=== PATIENT | female | born 1935 | race Caucasian/White ===

== ENCOUNTER → 2016-10-22 | Outpatient (CLI) | payer MEDICARE, OTHER ==
[2016-10-22 13:02] LABS: CHLORIDE,CL 103 mmol/L (98-110); SODIUM,NA 138 mmol/L (136-146)
== END ==
LOC: MW.CHPEDS 10:51 → MW.LAB 10:51
PROVIDERS: ATTEND Internal Medicine
DX: E03.9 Hypothyroidism, unspecified (principal); I10 Essential (primary) hypertension; E78.5 Hyperlipidemia, unspecified
CPT/HCPCS: 36415; 80053; 80061; 84439; 84443; 85025

== ENCOUNTER → 2016-10-23 | Outpatient (CLI) | payer MEDICARE, OTHER | LOC: MW.CHIM 08:00 | PROVIDERS: ATTEND Internal Medicine | DX: F41.8 Other specified anxiety disorders (principal); I10 Essential (primary) hypertension; E78.5 Hyperlipidemia, unspecified; K21.9 Gastro-esophageal reflux disease without esophagitis | CPT/HCPCS: 99214 ==

== ENCOUNTER 2017-04-20 08:09 | Day surgery (SDC) | payer MEDICARE, OTHER ==
[~2017-04-20 08:09] MED LIST: Lactated Ringers 1,000 ML IV SCH; Midazolam 1 MG/ML 2 ML SDV ONE; Propofol 200 MG/20 ML SDV ONE; fentaNYL 100 MCG/2 ML SDV ONE
--- NOTE | 2017-04-20 08:46 | PCM.PREANE ---
Preanesthetic Assessment - Anesthesia/Transfusion/Family Hx Anesthesia History: Prior Anesthesia Without Reaction Family History of Anesthesia Reaction: No Transfusion History: No Prior Transfusion(s) - Review of Systems General: No Symptoms Pulmonary: No Symptoms Cardiovascular: No Symptoms Gastrointestinal: No Symptoms Neurological: No Symptoms Other: Reports: None - Physical Assessment NPO Status Date: 04/19/17 Height: 1.6 m Weight: 77.111 kg ASA Class: 2 Mental Status: Alert & Oriented x3 Dentition: Reports: Normal Dentition ROM/Head Extension: Full Lungs: Clear to Auscultation, Normal Respiratory Effort Cardiovascular: Regular Rate, Regular Rhythm - Allergies Allergies/Adverse Reactions: Allergies Allergy/AdvReac Type Severity Reaction Status Date / Time No Known Allergies Allergy Verified 02/17/14 15:07 - Anesthesia Plan Pre-Op Medication Ordered: None - Acknowledgements Anesthesia Type Planned: MAC Pt an Appropriate Candidate for the Planned Anesthesia: Yes Alternatives and Risks of Anesthesia Discussed w Pt/Guardian: Yes Pt/Guardian Understands and Agrees with Anesthesia Plan: Yes PreAnesthesia Questionnaire - Past Health History Medical/Surgical History: Denies Medical/Surgical History HEENT History: Reports: Other (See Below) Other HEENT History: wears glasses, has upper partial Cardiovascular History: Reports: High Cholesterol, Hypertension Gastrointestinal History: Reports: GERD Genitourinary History: Reports: None 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: Musculoskeletal History: Reports: Arthritis, Back Pain, Chronic Psychiatric History: Reports: Anxiety, Depression - Past Surgical History Head Surgeries/Procedures: Reports: None HEENT Surgical History: Reports: Cataract Surgery Female Surgical History: Reports: Hysterectomy, Tubal Ligation - SUBSTANCE USE Smoking Status *Q: Former Smoker Second Hand Smoke Exposure: No Days Per Week of Alcohol Use: 2 Number of Drinks Per Day: 1 Total Drinks Per Week: 2 Recreational Drug Use History: No - HOME MEDS Home Medications: Home Meds Oxybutynin [Oxybutynin ER] 5 mg PO DAILY 09/20/13 [History] Simvastatin [Zocor] 20 mg PO BEDTIME 09/20/13 [History] Losartan/Hydrochlorothiazide [Losartan-HCTZ 50-12.5 MG] 1 each PO DAILY [History] Aspirin [[place] Aspirin] 81 ng PO DAILY 04/16/17 [History] Calcium Carbonate/Vitamin D3 [Calcium 600 + Vit D Tablet] 1 tab PO DAILY [History] Esomeprazole [NexIUM] 40 mg PO DAILY PRN 04/16/17 [History] LORazepam 0.5 - 1 tab PO BEDTIME PRN 04/16/17 [History] Magnesium 1 tab PO DAILY 04/16/17 [History] traMADol HCl [Tramadol HCl] 50 mg PO BID PRN 04/16/17 [History] - CURRENT (IN HOUSE) MEDS Current Meds: Current Medications Lactated Ringer's (Ringers, Lactated) 1,000 mls @ 125 mls/hr IV ASDIRECTED JOSIANE Discontinued Medications Fentanyl (Sublimaze) Confirm Administered Dose 100 mcg .ROUTE .STK-MED ONE Stop: 04/20/17 07:01 Lidocaine HCl (Xylocaine-Mpf 1%) Confirm Administered Dose 5 ml .ROUTE .STK-MED ONE Stop: 04/20/17 07:02 Midazolam HCl (Versed 1 Mg/Ml) Confirm Administered Dose 2 mg .ROUTE .STK-MED ONE Stop: 04/20/17 07:01 Propofol (Diprivan 20 Ml) Confirm Administered Dose 200 mg .ROUTE .STK-MED ONE Stop: 04/20/17 07:01
[2017-04-20] MEDS ORDERED: Propofol 200 MG/20 ML SDV ONE (09:59)
--- NOTE | 2017-04-20 10:22 | PCM.OPNOTE ---
- General Post-Op/Procedure Note Date of Surgery/Procedure: 04/20/17 Operative Procedure(s): EGD w/ biopsy. Colonoscopy w/snare rectal polypectomy, cold sigmoid and descending colon polypectomies Pre Op Diagnosis: Abdominal pain. Desire for colorectal cancer screening Post-Op Diagnosis: Chronic gastritis. Rectal, sigmoid and descending colon polyps. Sigmoid diverticulosis Anesthesia Technique: MAC (ASA II) Primary Surgeon: Patrick Anthony Condition: Good Free Text/Narrative:: Dictation [id number] CPT CODE [id number]
[2017-04-20] MEDS ORDERED: Lactated Ringers 1,000 ML IV SCH (10:30)
--- NOTE | 2017-04-20 11:04 | PCM48HPAN ---
Post Anesthesia Note - EVALUATION WITHIN 48HRS OF ANESTHETIC Vital Signs in Normal Range: Yes Patient Participated in Evaluation: Yes Respiratory Function Stable: Yes Airway Patent: Yes Cardiovascular Function Stable: Yes Hydration Status Stable: Yes Pain Control Satisfactory: Yes Nausea and Vomiting Control Satisfactory: Yes Mental Status Recovered: Yes
--- NOTE | 2017-04-20 11:04 | PCM.POSTAN ---
POST ANESTHESIA ASSESSMENT - MENTAL STATUS Mental Status: Alert, Oriented - RESPIRATORY Respiratory Status: Respiratory Rate WNL, Airway Patent, O2 Saturation Stable - CARDIOVASCULAR CV Status: Pulse Rate WNL, Blood Pressure Stable - GASTROINTESTINAL GI Status: No Symptoms - POST OP HYDRATION Hydration Status: Adequate & Stable
--- NOTE | 2017-04-20 13:53 | OR ---
SURGEON: Patrick Anthony M.D. DATE OF PROCEDURE: 04/20/2017 OPERATION PERFORMED: Esophagogastroduodenoscopy with biopsy. ANESTHESIA: MAC. ASA CLASSIFICATION: II. PREOPERATIVE DIAGNOSIS: Abdominal pain. POSTOPERATIVE DIAGNOSIS: Mild gastritis. DESCRIPTION OF PROCEDURE: The patient was taken to the endoscopy room, positioned on the endoscopy table in the supine position. Time-out was called for appropriate identification of the patient and procedure. Monitored anesthesia care was provided. A bite block was placed between the patient's teeth. The gastroscope was inserted and advanced without difficulty through the esophagus and stomach into the duodenum where examination was carried out in a retrograde fashion. The duodenum shows no acute inflammatory changes or ulcerations. The stomach does show mild-to- moderate gastritis. Antral biopsies were obtained to look for the presence of Helicobacter pylori. No acute ulcerations were noted. The gastroscope was retroflexed to visualize the proximal stomach. Again, no proximal lesions were identified. Specifically, no tumors or ulcerations were noted. The esophagus demonstrated good contractility. No vocal cord lesions were identified as the scope was removed. The patient tolerated the upper GI endoscopy well and following colonoscopy was taken to recovery room in stable condition. MELIDA BAILON /[id number]
--- NOTE | 2017-04-20 13:59 | OR ---
SURGEON: Patrick Anthony M.D. DATE OF PROCEDURE: 04/20/2017 OPERATION PERFORMED: Colonoscopy with snare rectal polypectomy, cold descending and sigmoid colon polypectomy. ANESTHESIA: MAC. ASA CLASSIFICATION: II. PREOPERATIVE DIAGNOSIS: Abdominal pain, desire for colorectal cancer screening. POSTOPERATIVE DIAGNOSES: 1. Large rectal polyp. 2. Sigmoid polyp. 3. Descending colon polyp. 4. Sigmoid diverticulosis. DESCRIPTION OF PROCEDURE: With the patient having completed esophagogastroduodenoscopy with biopsy, she was now positioned in the left lateral decubitus position. The colonoscope was inserted into the rectum and advanced with minimal difficulty to the cecum. Cecum was identified by internal landmarks and external pressure. The colonoscope was retroflexed in the cecum to visualize the ascending colon from below, then straightened and slowly withdrawn. The cecum, ascending colon, hepatic flexure, transverse colon, and splenic flexure showed no tumors, polyps, diverticula, or angiodysplastic changes. One polyp was encountered in the descending colon and removed with the cold biopsy forceps. Sigmoid diverticular changes were noted. No stricture, spasm, or bleeding was noted. A second polyp was encountered in the sigmoid colon and likewise removed with the cold biopsy forceps. A 3rd larger polyp was encountered in the proximal rectum and removed with the use of snare electrocautery. The specimen was able to be retrieved. The colonoscope was withdrawn to the distal rectum and retroflexed to visualize the anal orifice from above. There were no tumors, polyps, or hemorrhoidal changes distally. The colonoscope was then straightened, the rectum aspirated, and the colonoscope removed. The patient tolerated the procedure well and was taken to recovery room in stable condition. MELIDA BAILON /[id number]
== END 2017-04-20 11:25 | disposition home or self-care (01) ==
LOC: MW.SDS 08:09
PROVIDERS: ATTEND Surgery
DX: K29.50 Unspecified chronic gastritis without bleeding (principal); K63.5 Polyp of colon; D12.8 Benign neoplasm of rectum; K57.30 Diverticulosis of large intestine without perforation or abscess without bleeding; F41.9 Anxiety disorder, unspecified; I10 Essential (primary) hypertension; E78.00 Pure hypercholesterolemia, unspecified; E03.9 Hypothyroidism, unspecified; E66.3 Overweight; K21.9 Gastro-esophageal reflux disease without esophagitis; M19.90 Unspecified osteoarthritis, unspecified site; Z87.891 Personal history of nicotine dependence; Z79.82 Long term (current) use of aspirin; Z79.899 Other long term (current) drug therapy; Z98.49 Cataract extraction status, unspecified eye; Z98.51 Tubal ligation status; Z90.710 Acquired absence of both cervix and uterus; Z68.30 Body mass index [BMI] 30.0-30.9, adult
CPT/HCPCS: 43239; 45380; 45385; J2250; J3010; J7120; 00740; 88305; 88312; J2704

== ENCOUNTER 2019-11-03 18:36 | Emergency (ER) | payer MEDICARE, OTHER ==
[2019-11-03] MEDS ORDERED: Sodium Chloride 0.9% 10 ML Syringe FLUSH PRN (19:15)
[2019-11-03] MEDS ORDERED: Sodium Chloride 0.9% 2.5 ML Syringe FLUSH PRN (19:15)
--- NOTE | 2019-11-03 19:31 | EDM.PDOC ---
ED HPI GENERAL MEDICAL PROBLEM - General Chief Complaint: General Stated Complaint: BACK PAIN, SHORTNESS OF BREATHE,WEAK Time Seen by Provider: 11/03/19 19:05 - History of Present Illness INITIAL COMMENTS - FREE TEXT/NARRATIVE: 84-year-old female presents with generalized fatigue, shortness of breath and chronic back pain. Patient reports back pain for years which is typically low back pain sometimes thoracic back pain. She is tried physical therapy before with mixed results. This is an ongoing problem for her and she seems to be having worse symptoms over the last several weeks similar to previous exacerbations. Concerning this complaint, the patient denies any lukasz weakness , numbness, incontinence, or urinary retention. He does endorse chronic constipation but this is been unchanged for her in a chronic problem. She complains of shortness of breath which she noticed first about 1 month ago which seems to be accompanied with some fatigue. She denies any paroxysmal nocturnal dyspnea but she does endorse dyspnea on exertion walking up steps. She reports going to the mailbox seems to be difficult for her at this point. She denies any chest pain or previous heart history. Denies any previous heart attacks. Denies any recent trips or travels or history of DVT or PE. Denies any confusion, vision changes, recent falls, abdominal pain, dysuria, weakness, numbness, aphasia, diaphoresis, vomiting. Lower Back Pain Score (Numeric/FACES): 4 - Related Data Allergies Allergy/AdvReac Type Severity Reaction Status Date / Time No Known Allergies Allergy Verified 11/03/19 19:07 Home Meds: Home Meds Oxybutynin [Oxybutynin ER] 5 mg PO DAILY 09/20/13 [History] Simvastatin [Zocor] 20 mg PO BEDTIME 09/20/13 [History] Aspirin [[place] Aspirin] 81 ng PO DAILY 04/16/17 [History] Calcium Carbonate/Vitamin D3 [Calcium 600 + Vit D Tablet] 1 tab PO DAILY [History] Magnesium 1 tab PO DAILY 04/16/17 [History] Losartan [Cozaar] 25 mg PO DAILY 11/03/19 [History] cephALEXin [Keflex] 500 mg PO BID 3 Days #6 capsule 11/03/19 [Rx] Past Medical History - Past Health History Medical/Surgical History: Denies Medical/Surgical History HEENT History: Reports: Other (See Below) Other HEENT History: wears glasses, has upper partial Cardiovascular History: Reports: High Cholesterol, Hypertension Respiratory History: Reports: None Gastrointestinal History: Reports: GERD Genitourinary History: Reports: None 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: Musculoskeletal History: Reports: Arthritis, Back Pain, Chronic, Fracture Neurological History: Reports: None Psychiatric History: Reports: Anxiety, Depression Endocrine/Metabolic History: Reports: None Hematologic History: Reports: None Immunologic History: Reports: None Oncologic (Cancer) History: Reports: None Dermatologic History: Reports: None - Infectious Disease History Infectious Disease History: Reports: Chicken Pox, Measles - Past Surgical History Head Surgeries/Procedures: Reports: None HEENT Surgical History: Reports: Cataract Surgery, Eye Surgery GI Surgical History: Reports: Cholecystectomy, Colonoscopy, EGD Female Surgical History: Reports: Hysterectomy, Tubal Ligation Social & Family History - Tobacco Use Smoking Status *Q: Former Smoker Used Tobacco, but Quit: Yes Month/Year Tobacco Last Used: 1969 - Caffeine Use Caffeine Use: Reports: Coffee - Recreational Drug Use Recreational Drug Use: No ED ROS GENERAL - Review of Systems Review Of Systems: Comprehensive ROS is negative, except as noted in HPI. ED EXAM, GENERAL - Physical Exam Exam: See Below Free Text/Narrative:: General: No acute distress. Comfortable. Heent: Examination revealed no pallor, no icterus, no lymphadenopathy. The patient has normal posterior pharynx, moist mucous membranes. Neck: Supple. No JVD. No rigidity. Heart: Normal rate. Reg rhythm. No murmurs appreciated. Lungs: Bilaterally clear to auscultation. No focal findings. Abdomen: Nontender, non-distended, soft, no CVA tenderness. Neuro: Pt is moving all four extremities. EOMI. PERRL. Normal speech. Brisk patellar and Achilles reflexes bilateral lower extremities. Excellent power dorsiflexion and plantarflexion. Hip flexors full power. Back: There is some mild/moderate tenderness of the upper lumbar lower thoracic spine area. There is no evidence of contusion or ecchymosis here. Skin: Exposed areas appeared normally perfused, warm, normal color with no meaningful rashes or lesions. Extremities: Peripheral examination revealed no pedal edema. Peripheral pulses were 2+. EKG INTERPRETATION EKG Interpretation Comments: EKG time 7:28 PM. Normal sinus rhythm at 72. V2 does demonstrate a early R wave progression. Intervals are normal. There is a left axis. There is trace ST depression laterally. No acute ischemia noted. QTc is 420. Course - Vital Signs Text/Narrative:: The patient is not complaining of any focal weakness and therefore this is not likely associated with her chronic and ongoing back pain. No red flags for back pain to suggest any type of cauda equina or conus medullaris syndrome. She will follow-up with her primary care doctor about her back pain complaint. Her shortness of breath however is new and does need some work-up tonight. Will complete chest x-ray, BNP. BMP, CBC and of course EKG and troponin. We will also check MAg. Demonstrates some likely mild dehydration with elevated BUN. Small bolus given here. Also urine is somewhat dirty. Not likely the cause of her fatigue but probably worth several days treatment. Patient will follow-up with her primary care provider return with any worsening. No evidence to suggest the idea of fatigue from cardiac etiology given her normal troponin, EKG nonischemic and chest x-ray similar to previous. No leg swelling or EKGs findings strongly suggesting pulmonary embolus. Return precautions for any change or new symptoms. Last Recorded V/S: Last Vital Signs Temp 97.7 F 11/03/19 19:05 Pulse 70 11/03/19 20:30 Resp 20 11/03/19 19:05 BP 141/58 H 11/03/19 20:30 Pulse Ox 96 11/03/19 20:30 - Orders/Labs/Meds Orders: Active Orders 24 hr Category Date Time Status EKG Documentation Completion [RC] STAT Care 11/03/19 19:16 Active B-TYPE NATRIURETIC PEPTIDE,BNP [CHEM] Stat Lab 11/03/19 19:25 Received Sodium Chloride 0.9% [Normal Saline] 500 ml Med 11/03/19 20:53 Active IV .BOLUS Sodium Chloride 0.9% [Saline Flush] Med 11/03/19 19:15 Active 10 ml FLUSH ASDIRECTED PRN Sodium Chloride 0.9% [Saline Flush] Med 11/03/19 19:15 Active 2.5 ml FLUSH ASDIRECTED PRN Saline Lock Insert [OM.PC] Stat Oth 11/03/19 19:15 Ordered Medication Orders Sodium Chloride (Normal Saline) 500 mls @ 999 mls/hr IV .BOLUS ONE Stop: 11/03/19 21:23 Sodium Chloride (Saline Flush) 10 ml FLUSH ASDIRECTED PRN PRN Reason: Keep Vein Open Sodium Chloride (Saline Flush) 2.5 ml FLUSH ASDIRECTED PRN PRN Reason: Keep Vein Open Labs: Laboratory Tests 11/03/19 11/03/19 11/03/19 Range/Units 19:25 19:25 20:38 WBC 5.03 (4.0-11.0) K/uL RBC 4.24 L (4.30-5.90) M/uL Hgb 12.9 (12.0-16.0) g/dL Hct 38.4 (36.0-46.0) % MCV 90.6 (80.0-98.0) fL MCH 30.4 (27.0-32.0) pg MCHC 33.6 (31.0-37.0) g/dL RDW Std Deviation 43.5 (28.0-62.0) fl RDW Coeff of Maximino 13 (11.0-15.0) % Plt Count 208 (150-400) K/uL MPV 13.20 H (7.40-12.00) fL Neut % (Auto) 50.5 (48.0-80.0) % Lymph % (Auto) 33.6 (16.0-40.0) % Reagan % (Auto) 15.5 H (0.0-15.0) % Eos % (Auto) 0.2 (0.0-7.0) % Baso % (Auto) 0.2 (0.0-1.5) % Neut # (Auto) 2.5 (1.4-5.7) K/uL Lymph # (Auto) 1.7 (0.6-2.4) K/uL Reagan # (Auto) 0.8 (0.0-0.8) K/uL Eos # (Auto) 0.0 (0.0-0.7) K/uL Baso # (Auto) 0.0 (0.0-0.1) K/uL Nucleated RBC % 0.0 /100WBC Nucleated RBCs # 0 K/uL Sodium 134 L (136-145) mmol/L Potassium 3.9 (3.5-5.1) mmol/L Chloride 96 L (98-107) mmol/L Carbon Dioxide 25.0 (21.0-32.0) mmol/L BUN 27 H (7.0-18.0) mg/dL Creatinine 1.4 H (0.6-1.0) mg/dL Est Cr Clr Drug Dosing 25.63 mL/min Estimated GFR (MDRD) 36.0 ml/min Glucose 161 H (74-106) mg/dL Calcium 9.8 (8.5-10.1) mg/dL Magnesium 1.9 (1.8-2.4) mg/dL Total Bilirubin 0.7 (0.2-1.0) mg/dL AST 21 (15-37) IU/L ALT 22 (14-63) IU/L Alkaline Phosphatase 68 (46-116) U/L Troponin I < 0.050 (0.000-0.056) ng/mL Total Protein 8.0 (6.4-8.2) g/dL Albumin 4.2 (3.4-5.0) g/dL Globulin 3.8 (2.6-4.0) g/dL Albumin/Globulin Ratio 1.1 (0.9-1.6) Urine Color YELLOW Urine Appearance SLT CLOUDY Urine pH 5.5 (5.0-8.0) Ur Specific Dudley >= 1.030 (1.001-1.035) Urine Protein 30 H (NEGATIVE) mg/dL Urine Glucose (UA) NEGATIVE (NEGATIVE) mg/dL Urine Ketones TRACE H (NEGATIVE) mg/dL Urine Occult Blood TRACE-INTACT H (NEGATIVE) Urine Nitrite NEGATIVE (NEGATIVE) Urine Bilirubin SMALL H (NEGATIVE) Urine Ictotest QNS Urine Urobilinogen 0.2 (<2.0) EU/dL Ur Leukocyte Esterase LARGE H (NEGATIVE) Urine RBC 0-1 (0-2/HPF) Urine WBC 8-11 (0-5/HPF) Ur Epithelial Cells MODERATE (NONE-FEW) Urine Bacteria 2+ H (NEGATIVE) Urine Mucus LIGHT (NONE-MOD) Meds: Medications Generic Name Dose Route Start Last Admin Trade Name Freq PRN Reason Stop Dose Admin Sodium Chloride 500 mls @ 999 mls/hr 11/03/19 20:53 Normal Saline IV 11/03/19 21:23 .BOLUS ONE Sodium Chloride 10 ml 11/03/19 19:15 Saline Flush FLUSH ASDIRECTED PRN Keep Vein Open Sodium Chloride 2.5 ml 11/03/19 19:15 Saline Flush FLUSH ASDIRECTED PRN Keep Vein Open Departure - Departure Time of Disposition: 21:20 Disposition: Home, Self-Care 01 Preliminary Cause of *Q: Cardiac Arrest Condition: Good Clinical Impression: Shortness of breath, Back pain Fatigue Qualifiers: Fatigue type: unspecified Qualified Code(s): R53.83 - Other fatigue - Discharge Information Prescriptions: cephALEXin [Keflex] 500 mg PO BID 3 Days #6 capsule Referrals: Kirill Dunn MD [Primary Care Provider] - Forms: ED Department Discharge Additional Instructions: Drink a little more water than you have been. Maintain your hydration. You are a little bit dry here on your laboratories. Take your antibiotics as directed. Follow-up with your primary care provider first available appointment. Return to emergency with any new or troubling symptoms. The following information is given to patients seen in the emergency department who are being discharged to home. This information is to outline your options for follow-up care. We provide all patients seen in our emergency department with a follow-up referral. The need for follow-up, as well as the timing and circumstances, are variable depending upon the specifics of your emergency department visit. If you don't have a primary care physician on staff, we will provide you with a referral. We always advise you to contact your personal physician following an emergency department visit to inform them of the circumstance of the visit and for follow-up with them and/or the need for any referrals to a consulting specialist. The emergency department will also refer you to a specialist when appropriate. This referral assures that you have the opportunity for follow-up care with a specialist. All of these measure are taken in an effort to provide you with optimal care, which includes your follow-up. Under all circumstances we always encourage you to contact your private physician who remains a resource for coordinating your care. When calling for follow-up care, please make the office aware that this follow-up is from your recent emergency room visit. If for any reason you are refused follow-up, please contact the [facility] Emergency Department at and asked to speak to the emergency department charge nurse. Sepsis Event Note - Evaluation Sepsis Screening Result: No Definite Risk - Focused Exam Vital Signs: Vital Signs Temp Pulse Resp BP Pulse Ox 11/03/19 20:30 70 141/58 H 96 11/03/19 19:05 97.7 F 91 20 159/83 H 98 Date Exam was Performed: 11/03/19 Time Exam was Performed: 21:17 - My Orders Last 24 Hours: My Active Orders 11/03/19 19:15 Sodium Chloride 0.9% [Saline Flush] 10 ml FLUSH ASDIRECTED PRN Sodium Chloride 0.9% [Saline Flush] 2.5 ml FLUSH ASDIRECTED PRN Saline Lock Insert [OM.PC] Stat 11/03/19 19:16 EKG Documentation Completion [RC] STAT 11/03/19 19:25 B-TYPE NATRIURETIC PEPTIDE,BNP [CHEM] Stat 11/03/19 20:53 Sodium Chloride 0.9% [Normal Saline] 500 ml IV .BOLUS - Assessment/Plan Last 24 Hours: My Active Orders 11/03/19 19:15 Sodium Chloride 0.9% [Saline Flush] 10 ml FLUSH ASDIRECTED PRN Sodium Chloride 0.9% [Saline Flush] 2.5 ml FLUSH ASDIRECTED PRN Saline Lock Insert [OM.PC] Stat 11/03/19 19:16 EKG Documentation Completion [RC] STAT 11/03/19 19:25 B-TYPE NATRIURETIC PEPTIDE,BNP [CHEM] Stat 11/03/19 20:53 Sodium Chloride 0.9% [Normal Saline] 500 ml IV .BOLUS
--- NOTE | 2019-11-03 19:58 | CR ---
Chest: Portable view of the chest was obtained. Comparison: No prior chest imaging is available. Slight density is noted above the left hemidiaphragm either due to scarring or atelectasis. Lungs otherwise are clear. Heart size appears within normal limits for portable technique. Tortuous thoracic aorta is seen. Mild scoliosis is noted within the spine. Deformity of the distal left clavicle is seen most likely relating to old injury. Impression: 1. Findings as described above. 2. Nothing acute is appreciated on portable chest x-ray. Diagnostic code #2 This report was dictated in MDT
[2019-11-03 20:22] LABS: BLOOD UREA NITROGEN,BUN 27 mg/dL (7.0-18.0); CHLORIDE,CL 96 mmol/L (98-107); GLUCOSE RANDOM 161 mg/dL (74-106); POTASSIUM,K 3.9 mmol/L (3.5-5.1); SODIUM,NA 134 mmol/L (136-145)
[2019-11-03] MEDS ORDERED: Sodium Chloride 0.9% 500 ML IV ONE (20:53)
== END 2019-11-03 21:47 | disposition home or self-care (01) ==
LOC: MW.ED 18:36
DX: R53.83 Other fatigue (principal); R06.02 Shortness of breath; M54.5 Low back pain; E78.00 Pure hypercholesterolemia, unspecified; I10 Essential (primary) hypertension; Z79.899 Other long term (current) drug therapy; M19.90 Unspecified osteoarthritis, unspecified site; Z79.82 Long term (current) use of aspirin; Z87.891 Personal history of nicotine dependence
CPT/HCPCS: 36415; 71045; 80053; 81001; 83735; 83880; 84484; 85025; 93005; 99285; J7030; 99283

== ENCOUNTER 2020-10-20 20:48 | Emergency (ER) | payer MEDICARE, OTHER ==
[2020-10-20] MEDS ORDERED: Sodium Chloride 0.9% 1,000 ML IV ONE (21:32)
[2020-10-20] MEDS ORDERED: Ondansetron 4 MG/2 ML SDV IVPUSH ONE (21:32)
[2020-10-20] MEDS ORDERED: Sodium Chloride 0.9% 10 ML Syringe FLUSH PRN (21:32)
[2020-10-20] MEDS ORDERED: Sodium Chloride 0.9% 2.5 ML Syringe FLUSH PRN (21:32)
[2020-10-20 22:14] LABS: CARBON DIOXIDE,CO2 23.1 mmol/L (21.0-32.0); POTASSIUM,K 3.6 mmol/L (3.5-5.1)
--- NOTE | 2020-10-21 00:38 | CT ---
Indication: Abdominal pain Technique: Noncontrast CT abdomen and pelvis Please note that all CT scans at this facility use dose modulation, iterative reconstruction, and/or weight-based dosing when appropriate to reduce radiation dose to as low as reasonably achievable. Comparison: MRI May 05, 2017 Findings: Linear scarring within the left lower lobe. Small simple cyst within the periphery of the left hepatic lobe measuring 9 millimeters. No suspicious intrahepatic lesion. Interval cholecystectomy. No biliary obstruction. Adrenal glands are normal. Simple left renal cortical cyst measuring 2.1 centimeters. Simple exophytic cyst lateral aspect left kidney measuring 5.0 centimeters. Both of these are unchanged. Normal right kidney. No hydronephrosis. Spleen is normal. Vascular calcifications. There are ill-defined inflammatory densities surrounding the sigmoid colon. Mild sigmoid colon wall thickening suspected. Trace pelvic free fluid. No abscess or free air. No pneumatosis. Severe degenerative disc disease L2-3 with degenerative retrolisthesis. Impression: Suspicion of mild inflammation surrounding the sigmoid colon, possibly representing mild diverticulitis or mild colitis. Mild pelvic free fluid. No abscess or bowel obstruction. Status post cholecystectomy without biliary obstruction. Simple left renal cortical cysts. Please note that all CT scans at this facility use dose modulation, iterative reconstruction, and/or weight-based dosing when appropriate to reduce radiation dose to as low as reasonably achievable. Dictated by Derik Elizondo MD @ 10/21/2020 12:37:[address] Derik Elizondo @ Oct 21 2020 12:37AM
[2020-10-21] MEDS ORDERED: Ciprofloxacin 500 MG Tab PO ONE (00:49)
[2020-10-21] MEDS ORDERED: metroNIDAZOLE 250 MG Tab PO ONE (00:50)
--- NOTE | 2020-10-21 00:59 | EDM.PDOC ---
ED HPI GENERAL MEDICAL PROBLEM - General Chief Complaint: General Stated Complaint: LIGHTHEADED, NAUSEA, CRAMPING Time Seen by Provider: 10/20/20 21:10 - History of Present Illness INITIAL COMMENTS - FREE TEXT/NARRATIVE: HISTORY AND PHYSICAL: History of present illness: This is an 85-year-old female with history significant for hypercholesterolemia, hypertension, who presents ER today secondary to generalized weakness and mal aise, decreased p.o. intake, abdominal cramping times approximately 5 days. Patient reports that she saw her primary care physician and he ordered a CT scan on her on Thursday but has not had the report as of yet. Patient denies any recent fevers, shakes, chills. Patient reports nausea with no vomiting or diarrhea. Patient reports her last bowel movement was approximate 5 days ago which is highly atypical for her. Patient reports that the most she goes is usually 2 days without a bowel movement. Patient denies any chest pain or shortness of breath. Patient has any dysuria, frequency, urgency, melena, bright red blood per rectum, hematuria. Patient denies any URI symptoms or cough. Patient denies any coronavirus exposure. Review of systems: As per history of present illness and below otherwise all systems reviewed and negative. Past medical history: As per history of present illness and as reviewed below otherwise noncontributory. Surgical history: As per history of present illness and as reviewed below otherwise noncontributory. Social history: No reported history of drug abuse. Family history: As per history of present illness and as reviewed below otherwise no ncontributory. Physical exam: This patient was seen and evaluated during the 2019 SARS-CoV-2 novel coronavirus pandemic period. Community viral transmission is ongoing at time of this encounter and the emergency department is operating under pandemic response procedures. Constitutional: Patient is oriented to person, place, and time. Appears well- developed and well-nourished. No distress. HEENT: Moist mucous membranes Head: Normocephalic and atraumatic Eyes: Right eye exhibits no discharge. Left eye exhibits no discharge. No scleral icterus Neck: Normal range of motion. No tracheal deviation present. Cardiovascular: Normal rate and regular rhythm. Pulmonary: Effort normal, no respiratory distress. Abd: Soft, nondistended, no rebound/guarding, no psoas or obturator signs, no tenderness at Mcberney's point, no Lieberman's sign. Pt does not present with an exam that would be consistent with an acute surgical abdomen at this time, mild diffuse tenderness palpation over the periumbilical and lower abdominal regions. Musculoskeletal: Normal range of motion Neurologic: Alert and oriented to person, place and time. Skin: [place], warm and dry. Psychiatric: Normal mood and affect. Behavior is normal. Judgment and thought content normal. Nursing note and vital signs have been reviewed Diagnostics: CT scan is consistent with mild sigmoid diverticulitis/colitis. No other acute pathology identified. EKG: As interpreted by ER physician: Ruth: Nonspecific ST-T wave abnormalities Normal axis No evidence of ST elevation VT Normal sinus rhythm heart rate of 79 Therapeutics: Patient's labs are all within normal limits. Assessment and plan: This is an 85-year-old female who presents ER today secondary to no bowel movement for 5 days and abdominal discomfort generalized weakness. Patient's labs are all within normal limits. Patient CT scan reveals mild sigmoid diverticulitis. Patient did receive an enema here in the ED without any results. There is no evidence of obstruction or significant amount of constipation or impaction on the CT scan. Patient's decreased bowel movements are most likely related to her colitis/diverticulitis. Patient reports he feels significantly proved since being here in the ED with hydration that she is received. Patient will be discharged home with a prescription for Cipro and Flagyl to treat diverticulitis. Options for admission were given to the patient however she would prefer to try antibiotics at home first and if she does not get better she will return to the ER for admission. Reassessment at the time of disposition demonstrates that the patient is in no acute distress. The patient has remained stable throughout the entire ED visit and is without objective evidence for acute process requiring urgent int ervention or hospitalization. The patient is stable for discharge, counseling is provided as documented above, discussed symptomatic treatment and specific conditions for return. I have spoken with the patient/caregiver and discussed todays findings, in addition to providing specific details for the plan of care. Questions are answered and there is agreement with the plan. Definitive disposition and diagnosis as appropriate pending reevaluation and review of above. Bilateral Lower Abdomen Pain Score (Numeric/FACES): 4 - Related Data Allergies Allergy/AdvReac Type Severity Reaction Status Date / Time No Known Allergies Allergy Verified 10/20/20 21:10 Home Meds: Home Meds Oxybutynin [Oxybutynin ER] 5 mg PO DAILY 09/20/13 [History] Simvastatin [Zocor] 20 mg PO BEDTIME 09/20/13 [History] Aspirin [Carnuel Aspirin] 81 mg PO DAILY 04/16/17 [History] Magnesium 1 tab PO DAILY 04/16/17 [History] Losartan [Cozaar] 25 mg PO DAILY 11/03/19 [History] Ciprofloxacin [Ciprofloxacin HCl] 500 mg PO Q12HR #20 tab 10/21/20 [Rx] Ondansetron [Zofran ODT] 4 mg PO Q6H PRN #12 tab.dis 10/21/20 [Rx] metroNIDAZOLE [Flagyl] 500 mg PO Q8H #30 tab 10/21/20 [Rx] Past Medical History - Past Health History Medical/Surgical History: Denies Medical/Surgical History HEENT History: Reports: Other (See Below) Other HEENT History: wears glasses, has upper partial Cardiovascular History: Reports: High Cholesterol, Hypertension Respiratory History: Reports: None Gastrointestinal History: Reports: GERD Genitourinary History: Reports: None QUALITY MANAGEMENT NURSE History: Reports: Musculoskeletal History: Reports: Arthritis, Back Pain, Chronic, Fracture Neurological History: Reports: None Psychiatric History: Reports: Anxiety, Depression Endocrine/Metabolic History: Reports: None Hematologic History: Reports: None Immunologic History: Reports: None Oncologic (Cancer) History: Reports: None Dermatologic History: Reports: None - Infectious Disease History Infectious Disease History: Reports: Chicken Pox, Measles - Past Surgical History Head Surgeries/Procedures: Reports: None HEENT Surgical History: Reports: Cataract Surgery, Eye Surgery GI Surgical History: Reports: Cholecystectomy, Colonoscopy, EGD Female Surgical History: Reports: Hysterectomy, Tubal Ligation Social & Family History - Family History Family Medical History: No Pertinent Family History - Tobacco Use Tobacco Use Status *Q: Never Tobacco User Second Hand Smoke Exposure: No - Caffeine Use Caffeine Use: Reports: Coffee - Recreational Drug Use Recreational Drug Use: No ED ROS GENERAL - Review of Systems Review Of Systems: See Below ED EXAM, GENERAL - Physical Exam Exam: See Below Course - Vital Signs Last Recorded V/S: Last Vital Signs Temp 98.6 F 10/20/20 21:03 Pulse 76 10/20/20 21:03 Resp 16 10/20/20 21:03 BP 146/68 H 10/20/20 21:03 Pulse Ox 96 10/20/20 21:03 - Orders/Labs/Meds Orders: Active Orders 24 hr Category Date Time Status EKG Documentation Completion [RC] AM Care 10/20/20 21:32 Active UA W/YISSEL RFLX IF INDICATED [URIN] Stat Lab 10/20/20 21:32 Ordered Sodium Chloride 0.9% [Saline Flush] Med 10/20/20 21:32 Active 10 ml FLUSH ASDIRECTED PRN Sodium Chloride 0.9% [Saline Flush] Med 10/20/20 21:32 Active 2.5 ml FLUSH ASDIRECTED PRN Saline Lock Insert [OM.PC] Stat Oth 10/20/20 21:32 Ordered Medication Orders Sodium Chloride (Sodium Chloride 0.9% 10 Ml Syringe) 10 ml FLUSH ASDIRECTED PRN PRN Reason: Keep Vein Open Last Admin: 10/20/20 21:38 Dose: 10 ml Documented by: DONTA Sodium Chloride (Sodium Chloride 0.9% 2.5 Ml Syringe) 2.5 ml FLUSH ASDIRECTED PRN PRN Reason: Keep Vein Open Last Admin: 10/20/20 21:38 Dose: 2.5 ml Documented by: DONTA Labs: Laboratory Tests 10/20/20 10/20/20 Range/Units 21:46 21:46 WBC 10.67 (4.0-11.0) K/uL RBC 4.08 L (4.30-5.90) M/uL Hgb 12.5 (12.0-16.0) g/dL Hct 36.7 (36.0-46.0) % MCV 90.0 (80.0-98.0) fL MCH 30.6 (27.0-32.0) pg MCHC 34.1 (31.0-37.0) g/dL RDW Std Deviation 42.0 (28.0-62.0) fl RDW Coeff of Maximino 13 (11.0-15.0) % Plt Count 189 (150-400) K/uL MPV 13.30 H (7.40-12.00) fL Add Manual Diff YES Neutrophils % (Manual) 60 (48.0-80.0) % Lymphocytes % (Manual) 19 (16.0-40.0) % Monocytes % (Manual) 20 H (0.0-15.0) % Eosinophils % (Manual) 1 (0.0-7.0) % Nucleated RBC % 0.0 /100WBC Absolute Seg Neuts 6.4 H (1.4-5.7) Lymphocytes # (Manual) 2.0 (0.6-2.4) Monocytes # (Manual) 2.1 H (0.0-0.8) Eosinophils # (Manual) 0.1 (0.0-0.7) Nucleated RBCs # 0 K/uL Sodium 132 L (136-145) mmol/L Potassium 3.6 (3.5-5.1) mmol/L Chloride 95 L (98-107) mmol/L Carbon Dioxide 23.1 (21.0-32.0) mmol/L BUN 20 H (7.0-18.0) mg/dL Creatinine 1.6 H (0.6-1.0) mg/dL Est Cr Clr Drug Dosing 22.04 mL/min Estimated GFR (MDRD) 30.8 ml/min Glucose 104 (74-106) mg/dL Calcium 9.3 (8.5-10.1) mg/dL Total Bilirubin 1.0 (0.2-1.0) mg/dL AST 21 (15-37) IU/L ALT 21 (14-63) IU/L Alkaline Phosphatase 73 (46-116) U/L Total Protein 7.7 (6.4-8.2) g/dL Albumin 3.8 (3.4-5.0) g/dL Globulin 3.9 (2.6-4.0) g/dL Albumin/Globulin Ratio 1.0 (0.9-1.6) Lipase 72 L (73-393) U/L Meds: Medications Generic Name Dose Route Start Last Admin Trade Name Freq PRN Reason Stop Dose Admin Sodium Chloride 10 ml 10/20/20 21:32 10/20/20 21:38 Sodium Chloride 0.9% 10 Ml Syringe FLUSH 10 ml ASDIRECTED PRN Administration Keep Vein Open Sodium Chloride 2.5 ml 10/20/20 21:32 10/20/20 21:38 Sodium Chloride 0.9% 2.5 Ml Syringe FLUSH 2.5 ml ASDIRECTED PRN Administration Keep Vein Open Discontinued Medications Generic Name Dose Route Start Last Admin Trade Name Freq PRN Reason Stop Dose Admin Ciprofloxacin 500 mg 10/21/20 00:49 Ciprofloxacin 500 Mg Tab PO 10/21/20 00:50 ONETIME ONE Sodium Chloride 1,000 mls @ 999 mls/hr 10/20/20 21:32 10/20/20 21:38 Normal Saline IV 10/20/20 22:32 999 mls/hr .Bolus ONE Administration Metronidazole 500 mg 10/21/20 00:50 Metronidazole 250 Mg Tab PO 10/21/20 00:51 ONETIME ONE Ondansetron HCl 4 mg 10/20/20 21:32 10/20/20 21:38 Ondansetron 4 Mg/2 Ml Sdv IVPUSH 10/20/20 21:33 4 mg ONETIME ONE Administration Departure - Departure Time of Disposition: 00:56 Disposition: Home, Self-Care 01 Preliminary Cause of *Q: Cardiac Arrest Condition: Good Clinical Impression: Sigmoid diverticulitis - Discharge Information Instructions: Diverticulitis Referrals: Kirill Dunn MD [Primary Care Provider] - Additional Instructions: You were seen and evaluated in the ER today secondary to your abdominal pain and no bowel movement for 5 days. Your blood tests are all with normal limits. Your CT scan reveals that you have mild sigmoid diverticulitis which is causing your symptoms. Will be started on antibiotics to treat this as well as nausea medicine to assist you with your symptoms. If you are unable to keep down your medications or if you start having worsening stomach pains please return to the ER for likely admission to get antibiotic through your IV. Please make sure that you make an appointment to see your family doctor in the next 1 to 2 days to be reevaluated. The following information is given to patients seen in the emergency department who are being discharged to home. This information is to outline your options for follow-up care. We provide all patients seen in our emergency department with a follow-up referral. The need for follow-up, as well as the timing and circumstances, are variable depending upon the specifics of your emergency department visit. If you don't have a primary care physician on staff, we will provide you with a referral. We always advise you to contact your personal physician following an emergency department visit to inform them of the circumstance of the visit and for follow-up with them and/or the need for any referrals to a consulting specialist. The emergency department will also refer you to a specialist when appropriate. This referral assures that you have the opportunity for follow-up care with a specialist. All of these measure are taken in an effort to provide you with optimal care, which includes your follow-up. Under all circumstances we always encourage you to contact your private physician who remains a resource for coordinating your care. When calling for follow-up care, please make the office aware that this follow-up is from your recent emergency room visit. If for any reason you are refused follow-up, please contact the [facility] Emergency Department at and asked to speak to the emergency department charge nurse. [facility] [address] [place] [id number] [address] [address] Sepsis Event Note (ED) - Evaluation Sepsis Screening Result: No Definite Risk - Focused Exam Vital Signs: Vital Signs Temp Pulse Resp BP Pulse Ox 10/20/20 21:03 98.6 F 76 16 146/68 H 96 - My Orders Last 24 Hours: My Active Orders 10/20/20 21:32 EKG Documentation Completion [RC] AM UA W/YISSEL RFLX IF INDICATED [URIN] Stat Sodium Chloride 0.9% [Saline Flush] 10 ml FLUSH ASDIRECTED PRN Sodium Chloride 0.9% [Saline Flush] 2.5 ml FLUSH ASDIRECTED PRN Saline Lock Insert [OM.PC] Stat - Assessment/Plan Last 24 Hours: My Active Orders 10/20/20 21:32 EKG Documentation Completion [RC] AM UA W/YISSEL RFLX IF INDICATED [URIN] Stat Sodium Chloride 0.9% [Saline Flush] 10 ml FLUSH ASDIRECTED PRN Sodium Chloride 0.9% [Saline Flush] 2.5 ml FLUSH ASDIRECTED PRN Saline Lock Insert [OM.PC] Stat
== END 2020-10-21 01:20 | disposition home or self-care (01) ==
LOC: MW.ED 20:48
DX: K57.32 Diverticulitis of large intestine without perforation or abscess without bleeding (principal); E78.00 Pure hypercholesterolemia, unspecified; I10 Essential (primary) hypertension; K21.9 Gastro-esophageal reflux disease without esophagitis; Z79.82 Long term (current) use of aspirin; Z79.899 Other long term (current) drug therapy
CPT/HCPCS: 36415; 74176; 80053; 83690; 85025; 93005; 96374; 99284; A9270; J2405; J7030; 93010

== ENCOUNTER 2020-11-23 13:02 | Emergency (ER) | payer MEDICARE, OTHER ==
[2020-11-23] MEDS ORDERED: Sodium Chloride 0.9% 2.5 ML Syringe FLUSH PRN (13:38)
[2020-11-23] MEDS ORDERED: Sodium Chloride 0.9% 10 ML Syringe FLUSH PRN (13:38)
[2020-11-23] MEDS ORDERED: Bisacodyl 10 MG Supp RECTAL ONE (13:40)
[2020-11-23] MEDS ORDERED: Bisacodyl 5 MG Tab PO ONE (13:40)
[2020-11-23] MEDS ORDERED: Magnesium Citrate Solution 296 ML Bottle PO ONE (13:41)
[2020-11-23 14:20] LABS: POTASSIUM,K 3.9 mmol/L (3.5-5.1)
--- NOTE | 2020-11-23 14:42 | CT ---
For Patients: As a result of the Cures Act, medical imaging exams and procedure reports are released immediately into your electronic medical record. You may view this report before your referring provider. If you have questions, please contact your health care provider. INDICATION: Pt w/constipation and no bowel movement x 4 days. Hx of diverticulitis. TECHNIQUE: CT abdomen and pelvis acquired without IV contrast. COMPARISON: October 21, 2019 FINDINGS: Lower chest: Unremarkable. Liver: Unremarkable. Spleen: Unremarkable. Pancreas: Unremarkable. Gallbladder and bile ducts: S/p cholecystectomy. Adrenal glands: Unremarkable. Kidneys: Simple cysts on the left kidney. GI tract: Mild colonic diverticulosis. Moderate amount of feces in the colon. Appendix is not seen. Vascular structures: Moderate atherosclerotic calcifications. Lymph nodes: Unremarkable. Miscellaneous: Small fat containing umbilical hernia. Pelvic Organs: Status post hysterectomy. Trace free fluid in the pelvis. Bones: Severe degenerative changes at the L2-L3 level with 5 mm retrolisthesis of L2 on L3, stable. IMPRESSION: Moderate amount of feces in the colon. No bowel obstruction. Colonic diverticulosis without evidence for diverticulitis. Status post cholecystectomy and hysterectomy. Please note that all CT scans at this facility use dose modulation, iterative reconstruction, and/or weight-based dosing when appropriate to reduce radiation dose to as low as reasonably achievable. Dictated by Dahlia Friend MD @ 11/23/2020 2:41:[address] Dahlia Friend @ Nov 23 2020 2:41PM
[2020-11-23] MEDS ORDERED: Sodium Chloride 0.9% 1,000 ML IV ONE (15:10)
[2020-11-23] MEDS ORDERED: Lactulose Soln 10 GM/15 ML 15 ML UD Cup PO ONE (16:30)
--- NOTE | 2020-11-23 16:38 | EDM.PDOC ---
ED HPI GENERAL MEDICAL PROBLEM - General Chief Complaint: Gastrointestinal Problem Stated Complaint: SEVER CONSTIPATION Time Seen by Provider: 11/23/20 13:26 - History of Present Illness INITIAL COMMENTS - FREE TEXT/NARRATIVE: HISTORY AND PHYSICAL: History of present illness: This is an 85-year-old female with a history significant for diverticulitis who presents ER today secondary to constipation since Thursday. Patient reports that normally she moves her bowels every 2 to 3 days however she reports that she has not had a bowel movement for approximately 5 days now. Patient denies any diarrhea or loose stools. Patient denies any recent fevers, shakes, chills. Patient denies any chest pain or shortness of breath. Patient denies any abdominal pain or discomfort. Patient denies any dysuria, frequency, urgency or urinary complaints. Patient reports that she has had no change in her diet. She reports that she is been able to tolerate p.o. solids and liquids well. Patient reports feeling generalized weakness and frustration over no bowel movement. Patient reports that she has been taking Ex-Lax at home without any significant relief. Review of systems: As per history of present illness and below otherwise all systems reviewed and negative. Past medical history: As per history of present illness and as reviewed below otherwise noncontributory. Surgical history: As per history of present illness and as reviewed below otherwise noncontributory. Social history: No reported history of drug abuse. Family history: As per history of present illness and as reviewed below otherwise noncontributory. Physical exam: This patient was seen and evaluated during the 2019 SARS-CoV-2 novel coronavirus pandemic period. Community viral transmission is ongoing at time of this encounter and the emergency department is operating under pandemic response procedures. Constitutional: Patient is oriented to person, place, and time. Appears well- developed and well-nourished. No distress. HEENT: Moist mucous membranes Head: Normocephalic and atraumatic Eyes: Right eye exhibits no discharge. Left eye exhibits no discharge. No scleral icterus Neck: Normal range of motion. No tracheal deviation present. Cardiovascular: Normal rate and regular rhythm. Pulmonary: Effort normal, no respiratory distress. Abd: Soft, nondistended, no rebound/guarding, no psoas or obturator signs, no tenderness at Mcberney's point, no Lieberman's sign. Pt does not present with an exam that would be consistent with an acute surgical abdomen at this time, nontender to palpation. Positive stool in rectum Musculoskeletal: Normal range of motion Neurologic: Alert and oriented to person, place and time. Skin: [place], warm and dry. Psychiatric: Normal mood and affect. Behavior is normal. Judgment and thought content normal. Nursing note and vital signs have been reviewed Diagnostics: CT scan of the abdomen pelvis: Consistent with diverticulosis without any evidence of diverticulitis. Therapeutics: Dulcolax tablets 2 p.o Dulcolax suppositories to [facility] Mag citrate 296 mL p.o. Lactulose 10 mL p.o. Assessment and plan: This is an 85-year-old female who presents ER today secondary to constipation x5 days. Patient's labs are all within normal limits. Patient's CT scan does not show any evidence of bowel obstruction or diverticulitis. Patient was given Dulcolax tablets and suppositories to initiate for bowel movement here in the ED as well as a bottle of mag citrate and lactulose. Patient has not had a bowel movement as of yet in the ED however she reports that she feels tired and she would like to go home sleep. Patient will be given a prescription for Dulcolax tablets suppositories and mag citrate to take at home over the next 2 to 3 days and to follow-up with her primary care physician on Thursday. Patient was instructed to return to the ED if she has any new symptoms or complaints. Reassessment at the time of disposition demonstrates that the patient is in no acute distress. The patient has remained stable throughout the entire ED visit and is without objective evidence for acute process requiring urgent intervention or hospitalization. The patient is stable for discharge, counseling is provided as documented above, discussed symptomatic treatment and specific conditions for return. I have spoken with the patient/caregiver and discussed todays findings, in addition to providing specific details for the plan of care. Questions are answered and there is agreement with the plan. Definitive disposition and diagnosis as appropriate pending reevaluation and review of above. adominal pain Pain Score (Numeric/FACES): 8 - Related Data Allergies Allergy/AdvReac Type Severity Reaction Status Date / Time No Known Allergies Allergy Verified 11/23/20 13:39 Home Meds: Home Meds Oxybutynin [Oxybutynin ER] 5 mg PO DAILY 09/20/13 [History] Simvastatin [Zocor] 20 mg PO BEDTIME 09/20/13 [History] Aspirin [[place] Aspirin] 81 mg PO DAILY 04/16/17 [History] Magnesium 1 tab PO DAILY 04/16/17 [History] Losartan [Cozaar] 25 mg PO DAILY 11/03/19 [History] Ondansetron [Zofran ODT] 4 mg PO Q6H PRN #12 tab.dis 10/21/20 [Rx] Magnesium Citrate 296 ml PO DAILY PRN #2 solution 11/23/20 [Rx] bisacodyL [Dulcolax] 5 mg PO Q6H PRN #12 tab 11/23/20 [Rx] bisacodyL [Dulcolax] 10 mg RECTAL Q6HR PRN #12 supp 11/23/20 [Rx] Past Medical History - Past Health History Medical/Surgical History: Denies Medical/Surgical History HEENT History: Reports: Other (See Below) Other HEENT History: wears glasses, has upper partial Cardiovascular History: Reports: High Cholesterol, Hypertension Respiratory History: Reports: None Gastrointestinal History: Reports: GERD Genitourinary History: Reports: None [employer] History: Reports: Musculoskeletal History: Reports: Arthritis, Back Pain, Chronic, Fracture Neurological History: Reports: None Psychiatric History: Reports: Anxiety, Depression Endocrine/Metabolic History: Reports: None Hematologic History: Reports: None Immunologic History: Reports: None Oncologic (Cancer) History: Reports: None Dermatologic History: Reports: None - Infectious Disease History Infectious Disease History: Reports: Chicken Pox, Measles - Past Surgical History Head Surgeries/Procedures: Reports: None HEENT Surgical History: Reports: Cataract Surgery, Eye Surgery GI Surgical History: Reports: Cholecystectomy, Colonoscopy, EGD Female Surgical History: Reports: Hysterectomy, Tubal Ligation Social & Family History - Family History Family Medical History: No Pertinent Family History - Tobacco Use Tobacco Use Status *Q: Never Tobacco User - Caffeine Use Caffeine Use: Reports: Coffee - Recreational Drug Use Recreational Drug Use: No ED ROS GENERAL - Review of Systems Review Of Systems: See Below ED EXAM, GENERAL - Physical Exam Exam: See Below Course - Vital Signs Last Recorded V/S: Last Vital Signs Temp 96.1 F L 11/23/20 13:31 Pulse 76 11/23/20 13:31 Resp BP 148/58 H 11/23/20 13:31 Pulse Ox 97 11/23/20 13:31 - Orders/Labs/Meds Orders: Active Orders 24 hr Category Date Time Status UA W/YISSEL RFLX IF INDICATED [URIN] Stat Lab 11/23/20 13:38 Ordered Sodium Chloride 0.9% [Saline Flush] Med 11/23/20 13:38 Active 10 ml FLUSH ASDIRECTED PRN Sodium Chloride 0.9% [Saline Flush] Med 11/23/20 13:38 Active 2.5 ml FLUSH ASDIRECTED PRN Saline Lock Insert [OM.PC] Stat Oth 11/23/20 13:38 Ordered Medication Orders Sodium Chloride (Sodium Chloride 0.9% 10 Ml Syringe) 10 ml FLUSH ASDIRECTED PRN PRN Reason: Keep Vein Open Last Admin: 11/23/20 13:52 Dose: 10 ml Documented by: [id number] Sodium Chloride (Sodium Chloride 0.9% 2.5 Ml Syringe) 2.5 ml FLUSH ASDIRECTED PRN PRN Reason: Keep Vein Open Last Admin: 11/23/20 13:52 Dose: 2.5 ml Documented by: [id number] Labs: Laboratory Tests 11/23/20 11/23/20 Range/Units 13:48 13:48 WBC 6.54 (4.0-11.0) K/uL RBC 3.91 L (4.30-5.90) M/uL Hgb 12.0 (12.0-16.0) g/dL Hct 35.1 L (36.0-46.0) % MCV 89.8 (80.0-98.0) fL MCH 30.7 (27.0-32.0) pg MCHC 34.2 (31.0-37.0) g/dL RDW Std Deviation 44.2 (28.0-62.0) fl RDW Coeff of Maximino 14 (11.0-15.0) % Plt Count 186 (150-400) K/uL MPV 13.50 H (7.40-12.00) fL Neut % (Auto) 65.9 (48.0-80.0) % Lymph % (Auto) 18.8 (16.0-40.0) % Dewitt % (Auto) 14.5 (0.0-15.0) % Eos % (Auto) 0.6 (0.0-7.0) % Baso % (Auto) 0.2 (0.0-1.5) % Neut # (Auto) 4.3 (1.4-5.7) K/uL Lymph # (Auto) 1.2 (0.6-2.4) K/uL Dewitt # (Auto) 1.0 H (0.0-0.8) K/uL Eos # (Auto) 0.0 (0.0-0.7) K/uL Baso # (Auto) 0.0 (0.0-0.1) K/uL Nucleated RBC % 0.0 /100WBC Nucleated RBCs # 0 K/uL Sodium 131 L (136-145) mmol/L Potassium 3.9 (3.5-5.1) mmol/L Chloride 96 L (98-107) mmol/L Carbon Dioxide 24.0 (21.0-32.0) mmol/L BUN 20 H (7.0-18.0) mg/dL Creatinine 1.5 H (0.6-1.0) mg/dL Est Cr Clr Drug Dosing 23.51 mL/min Estimated GFR (MDRD) 33.2 ml/min Glucose 107 H (74-106) mg/dL Calcium 10.1 (8.5-10.1) mg/dL Total Bilirubin 0.8 (0.2-1.0) mg/dL AST 21 (15-37) IU/L ALT 19 (14-63) IU/L Alkaline Phosphatase 61 (46-116) U/L Total Protein 7.4 (6.4-8.2) g/dL Albumin 3.7 (3.4-5.0) g/dL Globulin 3.7 (2.6-4.0) g/dL Albumin/Globulin Ratio 1.0 (0.9-1.6) Lipase 48 L (73-393) U/L Meds: Medications Generic Name Dose Route Start Last Admin Trade Name Freq PRN Reason Stop Dose Admin Sodium Chloride 10 ml 11/23/20 13:38 11/23/20 13:52 Sodium Chloride 0.9% 10 Ml Syringe FLUSH 10 ml ASDIRECTED PRN Administration Keep Vein Open Sodium Chloride 2.5 ml 11/23/20 13:38 11/23/20 13:52 Sodium Chloride 0.9% 2.5 Ml Syringe FLUSH 2.5 ml ASDIRECTED PRN Administration Keep Vein Open Discontinued Medications Generic Name Dose Route Start Last Admin Trade Name Oscar PRN Reason Stop Dose Admin Bisacodyl 20 mg 11/23/20 13:40 11/23/20 14:15 Bisacodyl 5 Mg Tab PO 11/23/20 13:41 20 mg ONETIME ONE Administration Bisacodyl 20 mg 11/23/20 13:40 11/23/20 13:52 Bisacodyl 10 Mg Supp RECTAL 11/23/20 13:41 20 mg ONETIME ONE Administration Sodium Chloride 1,000 mls @ 999 mls/hr 11/23/20 15:10 11/23/20 15:54 Normal Saline IV 11/23/20 16:10 999 mls/hr .Bolus ONE Administration Lactulose 10 gm 11/23/20 16:30 Lactulose Soln 10 Gm/15 Ml 15 Ml Ud Cup PO 11/23/20 16:31 ONETIME ONE Magnesium Citrate 296 ml 11/23/20 13:41 11/23/20 13:52 Magnesium Citrate Solution 296 Ml Bottle PO 11/23/20 13:42 296 ml ONETIME ONE Administration Departure - Departure Time of Disposition: 16:34 Disposition: Home, Self-Care 01 Condition: Good Clinical Impression: Diverticulosis Constipation Qualifiers: Constipation type: unspecified constipation type Qualified Code(s): K59.00 - Constipation, unspecified - Discharge Information Instructions: Constipation, Adult Referrals: Kirill Dunn MD [Primary Care Provider] - Additional Instructions: You were seen and evaluated in the ER today secondary to constipation. The CT scan that we obtained revealed no evidence of bowel obstruction or diverticulitis. The CT scan of your abdomen pelvis was essentially normal. Your blood tests including a CBC and your electrolytes were all within normal limits. In the ER you have been given a dose of Dulcolax oral and suppositories as well as a bottle of magnesium citrate and lactulose. You will be discharged home with a prescription for magnesium citrate to take 1 bottle daily for the next 2 days as well as Dulcolax tablets and suppositories to take every 6 hours for the next 2 days as well. Please make an appointment to see your family doctor on Thursday if your symptoms have not resolved. Please return to the ER sooner if you have any new, worsening, or concerning symptoms. The following information is given to patients seen in the emergency department who are being discharged to home. This information is to outline your options for follow-up care. We provide all patients seen in our emergency department with a follow-up referral. The need for follow-up, as well as the timing and circumstances, are variable depending upon the specifics of your emergency department visit. If you don't have a primary care physician on staff, we will provide you with a referral. We always advise you to contact your personal physician following an emergency department visit to inform them of the circumstance of the visit and for follow-up with them and/or the need for any referrals to a consulting specialist. The emergency department will also refer you to a specialist when appropriate. This referral assures that you have the opportunity for follow-up care with a specialist. All of these measure are taken in an effort to provide you with optimal care, which includes your follow-up. Under all circumstances we always encourage you to contact your private physician who remains a resource for coordinating your care. When calling for follow-up care, please make the office aware that this follow-up is from your recent emergency room visit. If for any reason you are refused follow-up, please contact the [facility] Emergency Department at and asked to speak to the emergency department charge nurse. [facility] - [facility] [address] [place] [address] [place] [address] Sepsis Event Note (ED) - Evaluation Sepsis Screening Result: No Definite Risk - Focused Exam Vital Signs: Vital Signs Temp Pulse BP Pulse Ox 11/23/20 13:31 96.1 F L 76 148/58 H 97 - My Orders Last 24 Hours: My Active Orders 11/23/20 13:38 UA W/YISSEL RFLX IF INDICATED [URIN] Stat Sodium Chloride 0.9% [Saline Flush] 10 ml FLUSH ASDIRECTED PRN Sodium Chloride 0.9% [Saline Flush] 2.5 ml FLUSH ASDIRECTED PRN Saline Lock Insert [OM.PC] Stat - Assessment/Plan Last 24 Hours: My Active Orders 11/23/20 13:38 UA W/YISSEL RFLX IF INDICATED [URIN] Stat Sodium Chloride 0.9% [Saline Flush] 10 ml FLUSH ASDIRECTED PRN Sodium Chloride 0.9% [Saline Flush] 2.5 ml FLUSH ASDIRECTED PRN Saline Lock Insert [OM.PC] Stat
== END 2020-11-23 17:05 | disposition home or self-care (01) ==
LOC: MW.ED 13:02
DX: K59.00 Constipation, unspecified (principal); K57.30 Diverticulosis of large intestine without perforation or abscess without bleeding; E78.00 Pure hypercholesterolemia, unspecified; I10 Essential (primary) hypertension; M19.90 Unspecified osteoarthritis, unspecified site; Z79.82 Long term (current) use of aspirin; Z79.899 Other long term (current) drug therapy
CPT/HCPCS: 36415; 74176; 80053; 83690; 85025; 99284; A9270; J7030

== ENCOUNTER 2021-09-09 17:23 | Emergency (ER) | payer MEDICARE, OTHER ==
[2021-09-09] MEDS ORDERED: Diphtheria,Pertussis(Acell),Tetanus Vaccine 0.5 ML Syringe IM ONE (17:27)
[2021-09-09] MEDS ORDERED: Bacitracin Oint 1 GM U/D Packet TOP ONE (17:28)
== END 2021-09-09 19:45 | disposition home or self-care (01) ==
LOC: MW.ED 17:23
DX: S00.93XA Contusion of unspecified part of head, initial encounter (principal); Z23 Encounter for immunization; I10 Essential (primary) hypertension; E78.00 Pure hypercholesterolemia, unspecified; Z79.899 Other long term (current) drug therapy; W01.198A Fall on same level from slipping, tripping and stumbling with subsequent striking against other object, initial encounter; Y93.C9 Activity, other involving computer technology and electronic devices
CPT/HCPCS: 70450; 70450-26; 71045; 71045-26; 72125; 72125-26; 72170; 72170-26; 90471; 90715; 93005; 99284; 99284-25

== ENCOUNTER 2021-09-28 14:11 | Emergency (ER) | payer MEDICARE, OTHER ==
[2021-09-28] MEDS ORDERED: Sodium Chloride 0.9% 10 ML Syringe FLUSH PRN (14:43)
[2021-09-28] MEDS ORDERED: Sodium Chloride 0.9% 2.5 ML Syringe FLUSH PRN (14:43)
[2021-09-28 15:26] LABS: CARBON DIOXIDE,CO2 23.8 mmol/L (21.0-32.0); POTASSIUM,K 4.4 mmol/L (3.5-5.1)
[2021-09-28 15:41] LABS: CORONAVIRUS COVID-19 NAA NEGATIVE (NEGATIVE); INFLUENZA A NAA NEGATIVE (NEGATIVE); INFLUENZA B NAA NEGATIVE (NEGATIVE)
[2021-09-28] MEDS ORDERED: Ondansetron 4 MG/2 ML SDV IVPUSH ONE (16:25)
[2021-09-28] MEDS: Sodium Chloride 0.9% 1,000 ML IV ONE ×2 (16:35→16:59)
[2021-09-28] MEDS ORDERED: Acetaminophen 325 MG Tab PO ONE (17:11)
== END 2021-09-28 17:35 | disposition home or self-care (01) ==
LOC: MW.ED 14:11
DX: R42 Dizziness and giddiness (principal); R11.0 Nausea; I10 Essential (primary) hypertension; Z20.822 Contact with and (suspected) exposure to COVID-19; Z79.899 Other long term (current) drug therapy
CPT/HCPCS: 0240U; 36415; 71045; 80053; 81001; 83735; 84484; 85025; 93005; 96374; 99284; A9270; J2405; J3490; 93010; J7030

== ENCOUNTER 2021-10-06 17:35 | Emergency (ER) | payer MEDICARE, OTHER | END 2021-10-06 19:19 | disposition home or self-care (01) | LOC: MW.ED 17:35 | DX: M25.551 Pain in right hip (principal); G89.29 Other chronic pain; E78.00 Pure hypercholesterolemia, unspecified; I10 Essential (primary) hypertension; M19.90 Unspecified osteoarthritis, unspecified site; Z90.710 Acquired absence of both cervix and uterus; Z90.49 Acquired absence of other specified parts of digestive tract; Z79.899 Other long term (current) drug therapy; Z79.82 Long term (current) use of aspirin | CPT/HCPCS: 36415; 85379; 99283 ==